=== PATIENT | male | born 2000 | race African-American/Black ===

== ENCOUNTER 2022-02-02 13:08 | Emergency (ER) | payer SELFPAY ==
[~2022-02-02] VITALS: Ht 180.3 cm; Wt 75.0 kg
[~2022-02-02 13:08] MED LIST: D-ME473S8; PROAIR
[2022-02-02] MEDS ORDERED: TETANUS, DIPHTHERIA, PERTUSSIS VAC/PF 0.5ML (>10YR OLD) IM ONE (15:30)
[2022-02-02] MEDS ORDERED: HYDROCODONE/ACETAMINOPHEN 5/325MG TABLET PO ONE (15:30)
[2022-02-02] MEDS ORDERED: CEPHALEXIN 250MG CAPSULE PO ONE (16:15)
[2022-02-02] MEDS ORDERED: CEPH500C2 MT (16:49)
[2022-02-02] MEDS ORDERED: IBUP-2029 MT (16:49)
[2022-02-02] MEDS ORDERED: TRAM50TA3 MT (16:49)
[2022-02-02 18:29] VITALS: BP 114/60
== END 2022-02-02 18:31 | disposition home or self-care (01) ==
LOC: ER 13:39
DX: S81.812D Laceration without foreign body, left lower leg, subsequent encounter (principal); X58.XXXD Exposure to other specified factors, subsequent encounter
CPT/HCPCS: 73590; 73610; 90471; 90715; 99284